=== PATIENT | female | born 1955 | race American Indian/Alaskan Native ===

== ENCOUNTER 2017-06-18 14:40 | Emergency (ER) | payer SELFPAY ==
[2017-06-18 15:02] VITALS: BP 124/83; PULSE 97; RESP 20; TEMP 98.3; O2SAT 95
--- NOTE | 2017-06-18 16:15 | ED PDOC ---
HPI: Abdomen Time Seen by Provider: 06/18/17 15:48 Chief Complaint (Nursing): Abdominal Pain Chief Complaint (Provider): Abdominal Pain History/Exam Limitations: no limitations Onset/Duration Of Symptoms: Days (x yesterday) Current Symptoms Are (Timing): Still Present Additional Complaint(s): Ms. Zurita is a 61 year old female, with a history of ulcers, who presents to the emergency department complaining of stomach pain that started yesterday as epigastric pain and about to 2-3 episodes of non-bilious, non-bloody vomiting. Patient reports to continue to have some nausea, but no vomiting. Patient came here because pain seems to be worse. Patient reports she no longer takes any of her medications because she ran out. Patient initially thought due to ulcer. Patient reports taking Pepto Bismol and had non-productive cough with throat itching and mild rhinorrhea for 1 week. No fever, urinary symptoms, diarrhea, constipation, black or bloody stool. PMD: [facility] Past Medical History Reviewed: Historical Data, Nursing Documentation, Vital Signs Vital Signs: Last Vital Signs Temp 98.3 F 06/18/17 15:00 Pulse 97 H 06/18/17 15:00 Resp 20 06/18/17 15:00 BP 124/83 06/18/17 15:00 Pulse Ox 95 06/18/17 18:22 - Medical History PMH: Gastritis Denies: Chronic Kidney Disease - Surgical History Other surgeries: Hysterectomy - Family History Family History: States: Diabetes, Hypertension - Social History Current smoker - smoking cessation education provided: No Alcohol: None Drugs: Denies - Home Medications Home Medications: Ambulatory Orders Medication Instructions Recorded Nitrofurantoin Macrocrystals 100 mg PO BID #14 tab 05/22/16 [Macrobid] Ondansetron [Zofran Odt] 4 mg PO ASDIR PRN #20 odt 05/22/16 Oseltamivir Phosphate [Tamiflu] 75 mg PO BID #10 capsule 05/22/16 Ciprofloxacin [Cipro] 1 tab PO BID #14 tab 06/18/17 Dicyclomine [Bentyl] 20 mg PO BID PRN #30 tab 06/18/17 Saccharomyces Boulardi [Florastor] 500 mg PO BID #28 cap 06/18/17 - Allergies Allergies/Adverse Reactions: Allergies Allergy/AdvReac Type Severity Reaction Status Date / Time aspirin Allergy GI upset Verified 06/18/17 14:59 Review of Systems ROS Statement: Except As Marked, All Systems Reviewed And Found Negative Constitutional: Negative for: Fever ENT: Positive for: Nose Discharge (Rhinorrhea), Other (Itchy throat) Respiratory: Positive for: Cough (Non-productive) Gastrointestinal: Positive for: Nausea, Vomiting, Abdominal Pain (Epigastric pain). Negative for: Constipation, Melena, Hematochezia Genitourinary Female: Negative for: Dysuria, Hematuria Physical Exam - Reviewed Nursing Documentation Reviewed: Yes Vital Signs Reviewed: Yes - Physical Exam Appears: Positive for: Non-toxic, In Acute Distress Head Exam: Positive for: ATRAUMATIC, NORMOCEPHALIC Skin: Positive for: Warm, Dry Eye Exam: Positive for: EOMI, PERRL ENT: Negative for: Pharyngeal Erythema, Tonsillar Exudate Neck: Positive for: Painless ROM, Supple Cardiovascular/Chest: Positive for: Regular Rate, Rhythm, Chest Non Tender. Negative for: Murmur Respiratory: Positive for: Normal Breath Sounds. Negative for: Respiratory Distress Gastrointestinal/Abdominal: Positive for: Bowel Sounds, Soft, Tenderness (RLQ ttp). Negative for: Mass, Distended, Guarding, Rebound Back: Positive for: Normal Inspection. Negative for: Decreased ROM Extremity: Positive for: Normal ROM. Negative for: Deformity Lymphatic: Negative for: Adenopathy Neurologic/Psych: Positive for: Alert. Negative for: Motor/Sensory Deficits - Laboratory Results Result Diagrams: 06/18/17 16:33 06/18/17 16:33 - ECG O2 Sat by Pulse Oximetry: 95 (RA) Medical Decision Making Medical Decision Making: Time: 15:49 Impression(s): Abdominal pain, Nausea, and URI Differentials include, but not limited to: Viral syndrome, Gastritis, Appendicitis, Influenza, Pneumonia Plan: - CT Abdominal and Pelvic IV Contrast - CMP - Lipase - ED Urine Dipstick - CBC - Partial Thromboplastin Time - Prothrombin Time - Chest X-Ray - Pepcid 20 mg IVP STAT - Zofran Inj 8 mg IV STAT - Blood Culture - Influenza A B (-) for influenza a/b No emergently significant lab abnormalities Accession No. : [id number] Patient Name / ID : CESARIO ZURITA / [id number] Exam Date : 06/18/2017 16:27:49 ( Approved ) Study Comment : Sex / Age : F / 61Y Creator : Aries Boyce MD Dictator : Aries Boyce MD Tumbling Instructor : Servicer : Aries Boyce MD Approver2 : Report Date : 06/18/2017 17:07:12 My Comment : HISTORY: Cough. COMPARISON: 05/22/2016 TECHNIQUE: Chest PA and lateral FINDINGS: LUNGS: No active pulmonary disease. PLEURA: No significant pleural effusion identified. No pneumothorax apparent. CARDIOVASCULAR: No radiographic findings to suggest acute or significant cardiovascular disease. OSSEOUS STRUCTURES: No significant abnormalities. VISUALIZED UPPER ABDOMEN: Normal. OTHER FINDINGS: None. IMPRESSION: No active disease. No significant interval change compared to the prior examination(s). Accession No. : [id number] Patient Name / ID : CESARIO ZURITA / [id number] Exam Date : 06/18/2017 18:13:56 ( Approved ) Study Comment : Sex / Age : F / 61Y Creator : Kaylynn Muñiz MD Dictator : Kaylynn Muñiz MD Tumbling Instructor : Servicer : Kaylynn Muñiz MD Approver2 : Report Date : 06/18/2017 19:04:21 My Comment : PROCEDURE: CT Abdomen and Pelvis with contrast HISTORY: RLQ pain and vomiting COMPARISON: CT abdomen and pelvis with contrast performed 03/02/15 TECHNIQUE: Contrast dose: 95 mL Omnipaque 300 Radiation dose: Total exam DLP = 913.61 mGy-cm. This CT exam was performed using one or more of the following dose reduction techniques: Automated exposure control, adjustment of the mA and/or kV according to patient size, and/or use of iterative reconstruction technique. FINDINGS: LOWER THORAX: Mild bibasilar atelectasis. No visible pleural effusion or pneumothorax. LIVER: Unremarkable. GALLBLADDER AND BILE DUCTS: Unremarkable. PANCREAS: Unremarkable. SPLEEN: Unremarkable. ADRENALS: Unremarkable. KIDNEYS AND URETERS: The kidneys enhance symmetrically. No hydronephrosis or obstructing calculus identified. VASCULATURE: No aortic aneurysm. BOWEL: Stomach is nondistended. Lack of oral contrast limits evaluation for bowel pathology. Bowel loops appear within normal limits of caliber without evidence of obstruction. Small bowel wall thickening involving bowel loops in the right lower quadrant, likely ileum may reflect enteritis. APPENDIX: The appendix appears within normal limits of caliber. No secondary signs of acute appendicitis. PERITONEUM: Small pelvic free fluid. No definite free air. LYMPH NODES: No bulky adenopathy identified. BLADDER: Distended urinary bladder appears otherwise unremarkable. REPRODUCTIVE: Uterus is absent. BONES: Degenerative changes. OTHER FINDINGS: Trace pelvic fluid. Fat containing ventral hernia. More inferiorly is a bowel containing ventral hernia without evidence of obstruction. Small fat containing bilateral inguinal hernias. IMPRESSION: The appendix appears within normal limits of caliber. No secondary signs of acute appendicitis. Trace pelvic fluid. Fat containing ventral hernia. More inferiorly is a bowel containing ventral hernia without evidence of obstruction. Small fat containing bilateral inguinal hernias. Small bowel wall thickening involving bowel loops in the right lower quadrant, likely ileum may reflect enteritis. Correlate clinically. Additional findings as above. Pt stable. DW pt findings and plan of care. Scribe Attestation: Documented by Jameson Bae, acting as a scribe for Yaima Rasmussen MD. Provider Scribe Attestation: All medical record entries made by the Scribe were at my direction and personally dictated by me. I have reviewed the chart and agree that the record accurately reflects my personal performance of the history, physical exam, medical decision making, and the department course for this patient. I have also personally directed, reviewed, and agree with the discharge instructions and disposition. Disposition - Clinical Impression Clinical Impression: Abdominal pain, Enteritis Counseled Patient/Family Regarding: Studies Performed, Diagnosis - Disposition Referrals: [facility] [Outside] - 06/20/17 (FOLLOW UP AT CLINIC IN 2-3 DAYS) Disposition: Routine/Home Disposition Time: 19:50 Condition: STABLE Prescriptions: Ciprofloxacin [Cipro] 1 tab PO BID #14 tab Dicyclomine [Bentyl] 20 mg PO BID PRN #30 tab PRN Reason: abdominal pain Saccharomyces Boulardi [Florastor] 500 mg PO BID #28 cap Instructions: Abdominal Pain (ED), Enteritis (ED) Forms: [facility] ED School/Work Excuse
[2017-06-18 16:37] LABS: BASO % 0.5 % (0.0-2.0); EOS # 0.1 K/uL (0.0-0.7); EOS % 1.2 % (0.0-4.0); HEMOGLOBIN 12.3 g/dL (12.0-16.0); LYMPH # 2.1 K/uL (1.0-4.3); LYMPH % 37.8 % (20.0-40.0); MEAN CELL VOLUME 95.2 fl (81.0-99.0); MEAN CORPUSCULAR HEMOGLOBIN 31.4 pg (27.0-31.0); MEAN PLATELET VOLUME 8.9 fl (7.2-11.7); MONO # 0.4 K/uL (0.0-0.8); NEUT % 53.5 % (50.0-75.0); NRBC % 0.4 % (0.0-0.0); RBC 3.92 Mil/uL (3.80-5.20); RED CELL DISTRIBUTION WIDTH 13.2 % (11.5-14.5); WHITE BLOOD COUNT 5.7 K/uL (4.8-10.8)
[2017-06-18 16:52] LABS: ALB/GLOB RATIO 1.2 (1.0-2.1); ALBUMIN 4.3 g/dL (3.5-5.0); ALT/SGPT 38 U/L (9-52); AST/SGOT 34 U/L (14-36); BLOOD UREA NITROGEN 14 mg/dl (7-17); CALCIUM 9.4 mg/dL (8.4-10.2); GFR AFRICAN-AMERICAN > 60; GFR NON-AFRICAN AMERICAN > 60; LIPASE 70 U/L (23-300)
--- NOTE | 2017-06-18 17:09 | RAD ---
HISTORY: Cough. COMPARISON: 05/22/2016 TECHNIQUE: Chest PA and lateral FINDINGS: LUNGS: No active pulmonary disease. PLEURA: No significant pleural effusion identified. No pneumothorax apparent. CARDIOVASCULAR: No radiographic findings to suggest acute or significant cardiovascular disease. OSSEOUS STRUCTURES: No significant abnormalities. VISUALIZED UPPER ABDOMEN: Normal. OTHER FINDINGS: None. IMPRESSION: No active disease. No significant interval change compared to the prior examination(s).
[2017-06-18] MEDS ORDERED: Sodium Chloride 0.9% 50 ML IV ONE (18:12)
[2017-06-18] MEDS ORDERED: Iohexol 300 100 ML IJ ONE (18:12)
[2017-06-18 18:28] LABS: PARTIAL THROMBOPLASTIN TIME 22.7 Seconds (25.6-37.1); PROTHROMBIN TIME 10.8 Seconds (9.8-13.1)
--- NOTE | 2017-06-18 19:05 | CT ---
PROCEDURE: CT Abdomen and Pelvis with contrast HISTORY: RLQ pain and vomiting COMPARISON: CT abdomen and pelvis with contrast performed 03/02/15 TECHNIQUE: Contrast dose: 95 mL Omnipaque 300 Radiation dose: Total exam DLP = 913.61 mGy-cm. This CT exam was performed using one or more of the following dose reduction techniques: Automated exposure control, adjustment of the mA and/or kV according to patient size, and/or use of iterative reconstruction technique. FINDINGS: LOWER THORAX: Mild bibasilar atelectasis. No visible pleural effusion or pneumothorax. LIVER: Unremarkable. GALLBLADDER AND BILE DUCTS: Unremarkable. PANCREAS: Unremarkable. SPLEEN: Unremarkable. ADRENALS: Unremarkable. KIDNEYS AND URETERS: The kidneys enhance symmetrically. No hydronephrosis or obstructing calculus identified. VASCULATURE: No aortic aneurysm. BOWEL: Stomach is nondistended. Lack of oral contrast limits evaluation for bowel pathology. Bowel loops appear within normal limits of caliber without evidence of obstruction. Small bowel wall thickening involving bowel loops in the right lower quadrant, likely ileum may reflect enteritis. APPENDIX: The appendix appears within normal limits of caliber. No secondary signs of acute appendicitis. PERITONEUM: Small pelvic free fluid. No definite free air. LYMPH NODES: No bulky adenopathy identified. BLADDER: Distended urinary bladder appears otherwise unremarkable. REPRODUCTIVE: Uterus is absent. BONES: Degenerative changes. OTHER FINDINGS: Trace pelvic fluid. Fat containing ventral hernia. More inferiorly is a bowel containing ventral hernia without evidence of obstruction. Small fat containing bilateral inguinal hernias. IMPRESSION: The appendix appears within normal limits of caliber. No secondary signs of acute appendicitis. Trace pelvic fluid. Fat containing ventral hernia. More inferiorly is a bowel containing ventral hernia without evidence of obstruction. Small fat containing bilateral inguinal hernias. Small bowel wall thickening involving bowel loops in the right lower quadrant, likely ileum may reflect enteritis. Correlate clinically. Additional findings as above.
== END 2017-06-18 20:33 | disposition home or self-care (01) ==
LOC: H.ER 14:40
DX: K52.9 Noninfective gastroenteritis and colitis, unspecified (principal); K43.9 Ventral hernia without obstruction or gangrene
CPT/HCPCS: 71046; 74177; 80053; 83690; 85025; 85610; 85730; 87040; 87804; 96374; 99283; J2405; Q9967